=== PATIENT | female | born 1980 | race Two or more races ===

== ENCOUNTER 2018-08-27 10:20 | Emergency (ER) | payer MEDICAID ==
[~2018-08-27] VITALS: Ht 157.5 cm; Wt 75.3 kg
[2018-08-27 10:20] VITALS: BP 124/59
== END 2018-08-27 11:26 | disposition home or self-care (01) ==
LOC: ER 10:20
DX: M54.41 Lumbago with sciatica, right side (principal); G89.29 Other chronic pain; Z60.2 Problems related to living alone
CPT/HCPCS: Z7502